=== PATIENT | male | born 1955 | race Caucasian/White ===

== ENCOUNTER 2018-09-06 16:57 | Inpatient (IN) ==
[2018-09-06 19:30] LABS: Basophils % 0.1 % (0.1-2.0); Hematocrit 52.1 % (42.0-52.0); Hemoglobin 16.3 g/dL (14.1-18.0); Lymphocytes # 0.4 K/mm3 (0.7-4.5); Lymphocytes % 1.7 % (10-50); Mean Corpuscular HGB Conc 31.2 g/dL (31.8-35.4); Mean Corpuscular Hemoglobin 29.5 pg (27.0-31.2); Mean Corpuscular Volume 94.3 fl (80-94); Mean Platelet Volume 8.5 fl (7.4-10.4); Monocytes # 0.7 K/mm3 (0.1-1.0); Neutrophils # 22.9 K/mm3 (1.8-7.8); Neutrophils % 95.2 % (37.0-80.0); Platelet Count 342 K/mm3 (142-424); Red Blood Count 5.53 M/mm3 (4.60-6.20); Red Cell Distribution Width 13.5 % (11.5-17.5); White Blood Count 24.1 K/mm3 (4.8-10.8)
--- NOTE | 2018-09-06 19:33 | History & Physical Report ---
*Admission Date: 09/06/18 *Chief complaint: Weakness/malaise/weight loss *History of present illness: 63-year-old very unfortunate white male who has been on chronic disability for most of his life because of deaf/mute status and mild intellectual disability, who has been living independently in an apartment in [place], looked after by his sisters. Unfortunately about 3 months ago he had a sudden onset of neurologic symptoms consistent with stroke disease but imaging studies revealed brain mass-transfer to where work-up eventually revealed a glioblastoma of aggressive nature. He underwent craniotomy that removed part of the tumor but overall prognosis is extremely poor. Was discharged from the [facility] in July, and yesterday began oral chemotherapy with temozolomide, which is apparently scheduled to be taken Wednesday through Wednesday for 3 weeks. His sister who brought him to my office today stated that yesterday he was very communicative with his typical sign language, was able to stand up under his own power and to do his own self-care activities. She reports that this morning, since his 1 dose of oral chemotherapy he has been lethargic, has been incontinent of urine and has been staring "like a zombie." She thinks she is lost several pounds even overnight. In my office he was found to be lethargic. Minimally responsive to conversation with his sister and was unable to stand on his own power. He has lost 40 pounds in the past 2 months. We elected to admit to hospital to check his electrolytes, imaging to see if he has had a sudden stroke or hemorrhage, and replace any electrolytes or fluids needed. [facility] History I have reviewed the patient's past medical history: Yes Medical History: Reports:: Cancer (Glioblastoma-diagnosed July 2018, status post resection, terminal prog.), Diabetes Mellitus Type 2, Hypertension Denies:: Diabetes Mellitus Type 1, MRSA *Have you ever received a pneumonia vaccine?: Yes *Have you received a flu vaccine this season?: Yes Other Medical History: Reports: Chemotherapy Other Surgeries: Yes: Appendectomy, Cancer Surgery (Craniotomy July 2018) Amputation: No Fractures: No - *Social History Educational Level: Completed High School Smoking Status: Never smoker Alcohol Intake: never *Occupational Status:: disabled Housing: apartment Household Members: none *Travel in the last 8 weeks: None - Psychiatric History Expresses thoughts of harming self/others: None Suicide Plan Description: No Plan Family Hx:: Cancer, Diabetes, Heart Attack, Hyperlipidemia, Hypertension, Kidney Disease Review of Systems - Review of Systems Review of systems:: pertinent systems reviewed and negative unless documented below - Constitutional Reports anorexia, Reports daytime sleepiness, Reports fatigue, Reports weakness, Reports weight loss - Eyes Denies blind spots, Denies blurry vision - ENT Reports abnormal hearing (Congenital deaf/mute) - *Cardiovascular Denies chest pain, Denies excessive sweating - *Respiratory Denies change in phlegm color, Denies chest congestion - *Gastrointestinal Denies abdominal pain, Denies belching - *Genitourinary Reports urinary incontinence - *Musculoskeletal Reports abnormal walking, Reports decreased muscle mass, Reports limited joint movement, Reports loss of height, Reports muscle weakness - *Neurologic Reports abnormal walking, Reports abnormal movements, Reports behavioral changes, Reports unsteadiness, Reports dizziness, Reports localized weakness, Reports frequent falls, Reports lack of coordination Meds Home Medications Medication Instructions Recorded Confirmed Type Amlodipine Besylate 10 mg PO DAILY 07/29/18 09/06/18 History Atorvastatin Calcium [Atorvastatin 20 mg PO DAILY 07/29/18 09/06/18 History 20mg Tab] Fluoxetine HCl [Prozac 20mg 20 mg PO DAILY 07/29/18 09/06/18 History Capsule] Lisinopril [Lisinopril 5mg Tablet] 5 mg PO DAILY 07/29/18 09/06/18 History Metoprolol Tartrate 100 mg PO BID 07/29/18 09/06/18 History Sitagliptin Phosphate [Januvia 100 mg PO DAILY 07/29/18 09/06/18 History 100mg tablet] Dronabinol 5 mg PO BID 09/06/18 09/06/18 History Metformin HCl [Fortamet] 1,000 mg PO BID 09/06/18 09/06/18 History Ondansetron [Zofran 4mg ODT] 4 mg PO Q6HP PRN 09/06/18 09/06/18 History Temozolomide 250 mg PO HS 09/06/18 09/06/18 History levETIRAcetam [Levetiracetam] 750 mg PO BID 09/06/18 09/06/18 History Allergies Allergy/AdvReac Type Severity Reaction Status Date / Time Penicillins Allergy Verified 09/06/18 18:50 Exam Vital signs and Labs for Last 24 Hours: Temp Pulse Resp BP Pulse Ox 98.0 F 87 18 125/76 95 09/06/18 15:45 09/06/18 15:45 09/06/18 15:45 09/06/18 15:45 09/06/18 15:45 I & O for Last 24 hours: Intake & Output 09/04/18 09/05/18 09/06/18 09/07/18 11:59 11:59 11:59 11:59 Weight 133 lb 2 oz Narrative: Patient appears significantly ill, sallow complexion, weight loss is signifi cant. Oropharynx dry. Flat neck veins. Poor skin turgor with tenting. Lungs have poor air movement because of his muscle weakness. Heart rate regular. Abdomen is soft, scaphoid. Extremities are wasted, muscle atrophy noted. Able to move his extremities but very weak with 3/5 muscle strength in all 4 extremities. Drooping right face, bruise above the right orbit from a fall at home. Craniotomy scar noted. Assessment and Plan (1) Glioblastoma Current visit: Yes Status: Acute Category: Medical Code(s): C71.9 - Malignant neoplasm of brain, unspecified Continue oral chemotherapy-I think his symptoms are more disease progression but we will check labs and give IV fluids as noted below (2) Weight loss of more than 10% body weight Current visit: Yes Status: Acute Category: Medical Code(s): R63.4 - Abnormal weight loss Significant disease progression. Patient maintains DNR status. I discussed hospice care with his sisters. They are in agreement that he will need long- term care after this hospitalization. (3) Orthostatic hypotension Current visit: Yes Status: Acute Category: Medical Code(s): I95.1 - Orthostatic hypotension Labs, cautious IV fluids.
[2018-09-06 19:36] LABS: Albumin Level 2.5 gm/dL (3.4-5.0); Albumin/Globulin Ratio 0.8 (1.1-1.8); Anion Gap 20.8 mEq/L (5-15); Bilirubin,Total 0.6 mg/dL (0.2-1.0); Calcium 9.1 mg/dL (8.5-10.1); Potassium 5.8 mmoL/L (3.5-5.1); Total Protein,Serum 5.5 gm/dL (6.4-8.2)
[2018-09-06 20:32] LABS: Lymphocytes % 3 % (10-50); Monocytes % 1 % (2-9); Neutrophils % 96 % (42-76); Total Cells Counted 100
[2018-09-06 20:33] LABS: RBC Morphology Normal
[2018-09-07 06:10] LABS: Basophils % 0.1 % (0.1-2.0); Eosinophils # 0.1 K/mm3 (0.0-0.4); Eosinophils % 0.5 % (0.1-12.0); Hematocrit 43.4 % (42.0-52.0); Lymphocytes # 0.8 K/mm3 (0.7-4.5); Lymphocytes % 5.1 % (10-50); Mean Corpuscular HGB Conc 32.7 g/dL (31.8-35.4); Mean Corpuscular Hemoglobin 29.2 pg (27.0-31.2); Mean Corpuscular Volume 89.2 fl (80-94); Mean Platelet Volume 7.1 fl (7.4-10.4); Monocytes # 0.8 K/mm3 (0.1-1.0); Neutrophils % 89.3 % (37.0-80.0); Platelet Count 267 K/mm3 (142-424); Red Blood Count 4.86 M/mm3 (4.60-6.20); Red Cell Distribution Width 13.9 % (11.5-17.5); White Blood Count 15.7 K/mm3 (4.8-10.8)
[2018-09-07 06:16] LABS: Anion Gap 9.2 mEq/L (5-15); Blood Urea Nitrogen 53 mg/dL (7-18); Calcium 8.4 mg/dL (8.5-10.1); Carbon Dioxide 28 mmol/L (21.0-32.0); Chloride 114 mmol/L (98-107); Glucose 128 mg/dL (74-106); Potassium 4.2 mmoL/L (3.5-5.1); Sodium 147 mmol/L (136-145)
[2018-09-07 06:17] LABS: Hemoglobin 14.3 g/dL (14.1-18.0)
[2018-09-07 06:51] LABS: Acetone, Serum (Rapid) None Detected (None Detect)
--- NOTE | 2018-09-07 07:41 | Pharmacy Consult Notes ---
[facility] Pharmacy VTE Monitoring - Patient Demographics Admission date: 09/06/18 Report Date: 09/07/18 Time: 07:41 Allergies/Adverse Reactions: Patient Allergies Penicillins Allergy (Verified 09/06/18 18:50) Height: 1.83 m Weight: 61.263 kg Patient Problems: Current Active Problems Glioblastoma (Acute) Weight loss of more than 10% body weight (Acute) Orthostatic hypotension (Acute) - VTE Risk Labs: VTE Related Lab Results Hgb 14.3 g/dL (14.1-18.0) D 09/07/18 05:46 Hct 43.4 % (42.0-52.0) 09/07/18 05:46 Plt Count 267 K/mm3 (142-424) 09/07/18 05:46 BUN 53 mg/dL (7-18) H D 09/07/18 05:46 Creatinine 1.05 mg/dL (0.70-1.30) D 09/07/18 05:46 Estimated Creat Clear 64 mL/min (50-200) 09/07/18 05:46 Was VTE Risk Assessment Performed: Yes VTE Score: 3 VTE Risk Level: Low Risk - Prophylaxis VTE Prophylaxis Ordered?: Yes Types of VTE Prophylaxis: TEDS Knee High Location of Applied Device: Bilateral Lower Extremeties - VTE Diagnosis Confirmed Treatment or plan recommended: Continue Current Treatment
[2018-09-07 07:45] LABS: Lymphocytes % 2 % (10-50); Monocytes % 3 % (2-9); Neutrophils % 93 % (42-76); Total Cells Counted 100
[2018-09-07 07:46] LABS: RBC Morphology Normal
--- NOTE | 2018-09-07 08:19 | Progress Note ---
Internal Medicine - PN: Subj *Date: 09/07/18 *Time: 08:16 Interval history: Overall patient looks much better. Much more active. Labs reviewed showing impressive hyperglycemia resolved after intravenous insulin and fluids. Eating some breakfast. Still remains weak according to his sister. Exam Vital signs and Labs for Last 24 Hours: Temp Pulse Resp BP Pulse Ox 97.5 F L 70 16 157/85 H 97 09/07/18 07:47 09/07/18 07:47 09/07/18 07:47 09/07/18 07:47 09/07/18 07:47 Laboratory Results - last 24 hr 09/06/18 18:15: WBC 24.1 H*, RBC 5.53, Hgb 16.3, Hct 52.1 H, MCV 94.3 H, MCH 29.5, MCHC 31.2 L, RDW 13.5, Plt Count 342, MPV 8.5, Neut % (Auto) 95.2 H, Lymph % (Auto) 1.7 L, [place] % (Auto) 3.0, Eos % (Auto) 0.0 L, Baso % (Auto) 0.1, Neut # (Auto) 22.9 H, Lymph # (Auto) 0.4 L, [place] # (Auto) 0.7, Eos # (Auto) 0.0, Baso # (Auto) 0.0, Total Counted 100, Neutrophils % (Manual) 96 H, Lymphocytes % (Manual) 3 L, Monocytes % (Manual) 1 L, Platelet Estimate Normal, RBC Morphology Normal 09/06/18 18:15: Sodium 134 L, Potassium 5.8 H, Chloride 100, Carbon Dioxide 19 L , Anion Gap 20.8 H, BUN 73 H, Creatinine 1.49 H, Estimated Creat Clear 44, Estimated GFR 48 L, Est GFR ( Amer) 58 L, Glucose 805 H*, Calcium 9.1, Magnesium 2.6 H, Total Bilirubin 0.6, AST 20, ALT 80 H, Alkaline Phosphatase 151 H, Total Protein 5.5 L, Albumin 2.5 L, Globulin 3.0, Albumin/Globulin Ratio 0.8 L 09/06/18 18:15: Acetone Level Small 09/06/18 22:00: Random Glucose 484 H 09/07/18 05:46: WBC 15.7 H D, RBC 4.86, Hgb 14.3 D, Hct 43.4, MCV 89.2, MCH 29.2, MCHC 32.7, RDW 13.9, Plt Count 267, MPV 7.1 L, Neut % (Auto) 89.3 H, Lymph % (Auto) 5.1 L, [place] % (Auto) 5.0, Eos % (Auto) 0.5, Baso % (Auto) 0.1, Neut # (Auto) 14.0 H, Lymph # (Auto) 0.8, [place] # (Auto) 0.8, Eos # (Auto) 0.1, Baso # (Auto) 0.0, Total Counted 100, Neutrophils % (Manual) 93 H, Lymphocytes % (Manual) 2 L, Atypical Lymphs % 2.0, Monocytes % (Manual) 3, Platelet Estimate Normal, RBC Morphology Normal 09/07/18 05:46: Sodium 147 H, Potassium 4.2 D, Chloride 114 H, Carbon Dioxide 28 D, Anion Gap 9.2, BUN 53 H D, Creatinine 1.05 D, Estimated Creat Clear 64, Estimated GFR 72, Est GFR ( Amer) 87 D, Glucose 128 H D, Calcium 8.4 L, Acetone Level None detected 09/07/18 05:46: POC Glucose 120 H I & O for Last 24 hours: Intake & Output 09/04/18 09/05/18 09/06/18 09/07/18 11:59 11:59 11:59 11:59 Intake Total 2857 / 2857 Output Total 200 / 200 Balance 2657 / 2657 Weight 135 lb 1 oz Narrative: Patient is much more active, better hydrated. Heart rate regular. Abdomen soft, lungs have some rhonchi. No edema or clubbing. No focal neurologic deficits except for his deafness. Assessment and Plan (1) Glioblastoma Current visit: Yes Status: Acute Category: Medical Code(s): C71.9 - Malignant neoplasm of brain, unspecified Continue oral chemotherapy and palliative care. Patient is a good candidate for skilled care facility. (2) Weight loss of more than 10% body weight Current visit: Yes Status: Acute Category: Medical Code(s): R63.4 - Abnormal weight loss PT/OT evaluation for gait/safety evaluation. (3) Orthostatic hypotension Current visit: Yes Status: Acute Category: Medical Code(s): I95.1 - Orthostatic hypotension (4) Hyperosmolar hyperglycemic coma due to diabetes mellitus without ketoacidosis Current visit: Yes Status: Acute Category: Medical Code(s): E11.01 - Type 2 diabetes mellitus with hyperosmolarity with coma Nice improvement with IV insulin and IV fluids. Follow closely. (5) Diabetes type 2, uncontrolled Current visit: Yes Status: Acute Category: Medical Code(s): E11.65 - Type 2 diabetes mellitus with hyperglycemia Continue sliding scale insulin. (6) Community acquired pneumonia Current visit: Yes Status: Acute Category: Medical Code(s): J18.9 - Pneumonia, unspecified organism Infiltrate on portable chest x-ray. Recheck nonportable chest x-ray today. Start IV antibiotics.
[2018-09-07 15:21] LABS: Microscopic, Urine URINE MICROSCOPIC (MICROSCOPIC)
[2018-09-07 15:51] LABS: Appearance,Urine CLEAR (Clear); Bilirubin,Urine Negative (Negative); Blood, Urine Negative (Negative); Color,Urine YELLOW (Yellow); Glucose,Urine (UA) 3+ (Negative); Ketones,Urine 1+ (Negative); Leukocyte Esterase,Urine Negative (Negative); Protein,Urine Negative (Negative); Urobilinogen,Urine 0.2 EU/dl (0.2)
[2018-09-07 16:10] LABS: Bacteria,Urine Trace /lpf; Squamous Epithelial Cell,Urine Occasional #/hpf (0-5)
[2018-09-08 06:49] LABS: Basophils % 0.1 % (0.1-2.0); Eosinophils # 0.1 K/mm3 (0.0-0.4); Eosinophils % 0.6 % (0.1-12.0); Hematocrit 40.7 % (42.0-52.0); Hemoglobin 13.5 g/dL (14.1-18.0); Lymphocytes # 1.2 K/mm3 (0.7-4.5); Lymphocytes % 9.3 % (10-50); Mean Corpuscular HGB Conc 33.2 g/dL (31.8-35.4); Mean Corpuscular Hemoglobin 29.2 pg (27.0-31.2); Mean Corpuscular Volume 87.8 fl (80-94); Mean Platelet Volume 8.4 fl (7.4-10.4); Monocytes # 0.8 K/mm3 (0.1-1.0); Neutrophils % 84.1 % (37.0-80.0); Platelet Count 204 K/mm3 (142-424); Red Blood Count 4.63 M/mm3 (4.60-6.20); Red Cell Distribution Width 13.8 % (11.5-17.5)
[2018-09-08 07:22] LABS: Anion Gap 12.3 mEq/L (5-15); Calcium 7.7 mg/dL (8.5-10.1)
[2018-09-08 07:28] LABS: Potassium 4.3 mmoL/L (3.5-5.1)
--- NOTE | 2018-09-08 10:02 | Progress Note ---
Internal Medicine - PN: Subj *Date: 09/08/18 *Time: 08:15 Interval history: Patient is resting in bed, appetite is good. Gives thumbs up and smiles when asked how is he doing. He has no complaints. Exam Vital signs and Labs for Last 24 Hours: Temp Pulse Resp BP Pulse Ox 98.3 F 78 18 138/82 97 09/08/18 07:50 09/08/18 07:50 09/08/18 07:50 09/08/18 07:50 09/08/18 07:50 Laboratory Results - last 24 hr 09/06/18 22:40: Urine Color Yellow, Urine Appearance Clear, Urine pH 5.0, Ur Specific [place] 1.010, Urine Protein Negative, Urine Glucose (UA) 3+, Urine Ketones 1+, Urine Blood Negative, Urine Nitrate Negative, Urine Bilirubin Negative, Urine Urobilinogen 0.2, Ur Leukocyte Esterase Negative, Urine RBC None, Urine WBC 3-5, Ur Squamous Epith Cells Occasional, Urine Bacteria Trace 09/07/18 11:43: POC Glucose 213 H 09/07/18 16:29: POC Glucose 134 H 09/07/18 20:31: POC Glucose 214 H 09/08/18 05:17: POC Glucose 263 H 09/08/18 05:42: WBC 13.0 H, RBC 4.63, Hgb 13.5 L, Hct 40.7 L, MCV 87.8, MCH 29.2, MCHC 33.2, RDW 13.8, Plt Count 204, MPV 8.4, Neut % (Auto) 84.1 H, Lymph % (Auto) 9.3 L, [place] % (Auto) 6.0, Eos % (Auto) 0.6, Baso % (Auto) 0.1, Neut # (Auto) 11.0 H, Lymph # (Auto) 1.2, [place] # (Auto) 0.8, Eos # (Auto) 0.1, Baso # (Auto) 0.0 09/08/18 05:42: Sodium 137, Potassium 4.3, Chloride 106, Carbon Dioxide 23, Anion Gap 12.3, BUN 19 H D, Creatinine 0.34 L D, Estimated Creat Clear 71, Estimated GFR 264, Est GFR ( Amer) 319 D, Glucose 98 D, Calcium 7.7 L I & O for Last 24 hours: Intake & Output 09/05/18 09/06/18 09/07/18 09/08/18 11:59 11:59 11:59 11:59 Intake Total 2857 / 2857 4387 / 4387 Output Total 200 / 200 Balance 2657 / 2657 4387 / 4387 Weight 135 lb 1 oz 143 lb 1 oz Narrative: Alert and oriented at baseline, Deaf/mute, communicates by reading lips and using hand gestures/communication board. Rate and rhythm regular. No LE edema. Lung sounds clear anteriorly. Abd soft and nontender Assessment and Plan (1) Glioblastoma Current visit: Yes Status: Acute Category: Medical Code(s): C71.9 - Malignant neoplasm of brain, unspecified (2) Weight loss of more than 10% body weight Current visit: Yes Status: Acute Category: Medical Code(s): R63.4 - Abnormal weight loss (3) Orthostatic hypotension Current visit: Yes Status: Acute Category: Medical Code(s): I95.1 - Orthostatic hypotension (4) Hyperosmolar hyperglycemic coma due to diabetes mellitus without keto acidosis Current visit: Yes Status: Acute Category: Medical Code(s): E11.01 - Type 2 diabetes mellitus with hyperosmolarity with coma (5) Diabetes type 2, uncontrolled Current visit: Yes Status: Acute Category: Medical Code(s): E11.65 - Type 2 diabetes mellitus with hyperglycemia (6) Community acquired pneumonia Current visit: Yes Status: Acute Category: Medical Code(s): J18.9 - Pneumonia, unspecified organism (7) Severe protein-calorie malnutrition Current visit: Yes Status: Acute Category: Medical Code(s): E43 - Unspe cified severe protein-calorie malnutrition - Assessment and plan all Dx Assessment and Plan for all problems:: Overall, he is improving. WBC down to 13. Repeat CXR showed no infiltrates. He appears comfortable. On track for d/c to [facility] on Wednesday. LTC facility will need draft of d/c summary tomorrow to obtain medications as pharmacy does not delivery on the weekend. Restart Metformin today and add Januvia for glucose control which will need to be continued after d/c.
--- NOTE | 2018-09-08 17:31 | Discharge Summary ---
General - General Admission date:: 09/07/18 Discharge date: 09/10/18 HPI HPI: 63-year-old very unfortunate white male who has been on chronic disability for most of his life because of deaf/mute status and mild intellectual disability, who has been living independently in an apartment in [place], looked after by his sisters. Unfortunately about 3 months ago he had a sudden onset of neurologic symptoms consistent with stroke disease but imaging studies revealed brain mass-transfer to where work-up eventually revealed a glioblastoma of aggressive nature. He underwent craniotomy that removed part of the tumor but overall prognosis is extremely poor. Was discharged from the [facility] in July, and yesterday began oral chemotherapy with temozolomide, which is apparently scheduled to be taken Wednesday through Wednesday for 3 weeks. His sister who brought him to my office today stated that yesterday he was very communicative with his typical sign language, was able to stand up under his own power and to do his own self-care activities. She reports that this morning, since his 1 dose of oral chemotherapy he has been lethargic, has been incontinent of urine and has been staring "like a zombie." She thinks she is lost several pounds even overnight. In my office he was found to be lethargic. Minimally responsive to conversation with his sister and was unable to stand on his own power. He has lost 40 pounds in the past 2 months. We elected to admit to hospital to check his electrolytes, imaging to see if he has had a sudden stroke or hemorrhage, and replace any electrolytes or fluids needed. Hospital Course Hospital Course: Mr. Medina is an unfortunate man with terminal glioblastoma, status post debulking, who presented with lethargy and hyperglycemia. Admitted for concern of stroke with workup and imaging negative. Found to have significantly elevated hyperglycemia that was corrected using insulin. Patient's disposition and lethargy improved with normalization of blood sugar. Due to patient's debility, weight loss, difficulty caring for himself, placement was initiated for short-term nursing at time of discharge. Patient has remained medically stable with normal vitals, improved blood sugar control, tolerating p.o. intake. Remains stable for discharge to nursing facility with continuation of steroids for swelling associated with glioblastoma. Tolerating dual oral anti- hypoglycemia meds. Will evaluate in the coming days for possible initiation of further insulin regimen. Patient has no complaints today. Of note communicates best with communication board and sign language. Objective Vital signs: Temp Pulse Resp BP Pulse Ox 98.2 F 66 16 140/81 95 09/08/18 15:51 09/08/18 15:51 09/08/18 15:51 09/08/18 15:51 09/08/18 15:51 Narrative: Alert and oriented at baseline, Deaf/mute, communicates by reading lips and using hand gestures/communication board. Rate and rhythm regular. No LE edema. Lung sounds clear anteriorly. Abd soft and nontender Results Labs on day of discharge: Labs from last 24 hours 09/08/18 09/08/18 09/08/18 16:26 11:42 05:42 WBC RBC Hgb Hct MCV MCH MCHC RDW Plt Count MPV Neut % (Auto) Lymph % (Auto) [place] % (Auto) Eos % (Auto) Baso % (Auto) Neut # (Auto) Lymph # (Auto) [place] # (Auto) Eos # (Auto) Baso # (Auto) Sodium Potassium Chloride Carbon Dioxide Anion Gap BUN Creatinine Estimated Creat Clear Estimated GFR Est GFR ( Amer) Glucose POC Glucose 165 H 99 Calcium Acetone Level None detected 09/08/18 09/08/18 09/08/18 05:42 05:42 05:17 WBC 13.0 H RBC 4.63 Hgb 13.5 L Hct 40.7 L MCV 87.8 MCH 29.2 MCHC 33.2 RDW 13.8 Plt Count 204 MPV 8.4 Neut % (Auto) 84.1 H Lymph % (Auto) 9.3 L [place] % (Auto) 6.0 Eos % (Auto) 0.6 Baso % (Auto) 0.1 Neut # (Auto) 11.0 H Lymph # (Auto) 1.2 [place] # (Auto) 0.8 Eos # (Auto) 0.1 Baso # (Auto) 0.0 Sodium 137 Potassium 4.3 Chloride 106 Carbon Dioxide 23 Anion Gap 12.3 BUN 19 H D Creatinine 0.34 L D Estimated Creat Clear 71 Estimated GFR 264 Est GFR ( Amer) 319 D Glucose 98 D POC Glucose 263 H Calcium 7.7 L Acetone Level 09/07/18 20:31 WBC RBC Hgb Hct MCV MCH MCHC RDW Plt Count MPV Neut % (Auto) Lymph % (Auto) [place] % (Auto) Eos % (Auto) Baso % (Auto) Neut # (Auto) Lymph # (Auto) [place] # (Auto) Eos # (Auto) Baso # (Auto) Sodium Potassium Chloride Carbon Dioxide Anion Gap BUN Creatinine Estimated Creat Clear Estimated GFR Est GFR ( Amer) Glucose POC Glucose 214 H Calcium Acetone Level DS: Diagnosis - Discharge Diagnosis (1) Glioblastoma Status: Acute (2) Weight loss of more than 10% body weight Status: Acute (3) Orthostatic hypotension Status: Acute (4) Hyperosmolar hyperglycemic coma due to diabetes mellitus without ketoacidosis Status: Acute (5) Diabetes type 2, uncontrolled Status: Acute (6) Community acquired pneumonia Status: Acute (7) Severe protein-calorie malnutrition Status: Acute Discharge Plan - Patient Discharge Instructions ACTIVITY: Ambulate as tolerated DIET: continue same diet Patient Instructions: Glioblastoma Multiforme, Deafness, DI for Orthostatic Hypotension, DI for Dehydration -- Adult, DI for Pneumonia -- Adult, How to Prevent Falls, DI for Hyperglycemia -- Adult, DI for Muscle Weakness - Follow up Plan Disposition: [facility] Home Medications: Home Medications Medication Instructions Recorded Confirmed Type Amlodipine Besylate 10 mg PO DAILY 07/29/18 09/06/18 History Atorvastatin Calcium [Atorvastatin 20 mg PO HS 07/29/18 09/07/18 History 20mg Tab] Fluoxetine HCl [Prozac 20mg 20 mg PO DAILY 07/29/18 09/06/18 History Capsule] Lisinopril [Lisinopril 5mg Tablet] 5 mg PO DAILY 07/29/18 09/06/18 History Metoprolol Tartrate 100 mg PO BID 07/29/18 09/06/18 History Sitagliptin Phosphate [Januvia 100 mg PO DAILY 07/29/18 09/06/18 History 100mg tablet] Dronabinol 5 mg PO BID 09/06/18 09/06/18 History Metformin HCl [Fortamet] 1,000 mg PO BID 09/06/18 09/06/18 History Ondansetron [Zofran 4mg ODT] 4 mg PO Q6HP PRN 09/06/18 09/06/18 History Temozolomide 250 mg PO HS 09/06/18 09/06/18 History levETIRAcetam [Levetiracetam] 750 mg PO BID 09/06/18 09/06/18 History Dexamethasone [Decadron 4mg tablet] 4 mg PO BID 09/07/18 09/07/18 History Prescriptions/Medication Reconciliation: Continue Metoprolol Tartrate 100 mg PO BID Lisinopril [Lisinopril 5mg Tablet] 5 mg PO DAILY Fluoxetine HCl [Prozac 20mg Capsule] 20 mg PO DAILY Atorvastatin Calcium [Atorvastatin 20mg Tab] 20 mg PO HS Amlodipine Besylate 10 mg PO DAILY Temozolomide 250 mg PO HS Ondansetron [Zofran 4mg ODT] 4 mg PO Q6HP PRN PRN Reason: Nausea Metformin HCl [Fortamet] 1,000 mg PO BID Dronabinol 5 mg PO BID Dexamethasone [Decadron 4mg tablet] 4 mg PO BID Sitagliptin Phosphate [Januvia 100mg tablet] 100 mg PO DAILY levETIRAcetam [Levetiracetam] 750 mg PO BID
--- NOTE | 2018-09-09 14:01 | Progress Note ---
Internal Medicine - PN: Subj *Date: 09/09/18 *Time: 08:30 Interval history: Bandage clean dry and intact, bowel sounds present patient remained hemodynamically stable overnight without fever. Cooperative mood this morning. Communicating via white board. no complaints today. No shortness of breath, oxygen requirement, nausea vomiting, diarrhea. Exam Vital signs and Labs for Last 24 Hours: Temp Pulse Resp BP Pulse Ox 97.5 F L 68 16 114/70 99 09/09/18 08:00 09/09/18 08:00 09/09/18 08:00 09/09/18 08:00 09/09/18 08:23 Laboratory Results - last 24 hr 09/08/18 16:26: POC Glucose 165 H 09/08/18 21:33: POC Glucose 258 H 09/09/18 06:57: POC Glucose 116 H 09/09/18 11:17: POC Glucose 118 H I & O for Last 24 hours: Intake & Output 09/06/18 09/07/18 09/08/18 09/09/18 23:59 23:59 23:59 23:59 Intake Total 3577 / 3577 5756 / 5756 1694 / 1694 Output Total 200 / 200 Balance -200 / -200 3577 / 3577 5756 / 5756 1694 / 1694 Weight 60.384 kg 61.263 kg 67.132 kg 66.905 kg Narrative: Alert and oriented at baseline, Deaf/mute, communicates by reading lips and using hand gestures/communication board. Rate and rhythm regular. No LE edema. Lung sounds clear anteriorly. Abd soft and nontender Assessment and Plan (1) Glioblastoma Current visit: Yes Status: Acute Category: Medical Code(s): C71.9 - Malignant neoplasm of brain, unspecified (2) Weight loss of more than 10% body weight Current visit: Yes Status: Acute Category: Medical Code(s): R63.4 - Abnormal weight loss (3) Orthostatic hypotension Current visit: Yes Status: Acute Category: Medical Code(s): I95.1 - Orthostatic hypotension (4) Hyperosmolar hyperglycemic coma due to diabetes mellitus without ketoacidosis Current visit: Yes Status: Acute Category: Medical Code(s): E11.01 - Type 2 diabetes mellitus with hyperosmolarity with coma (5) Diabetes type 2, uncontrolled Current visit: Yes Status: Acute Category: Medical Code(s): E11.65 - Type 2 diabetes mellitus with hyperglycemia (6) Community acquired pneumonia Current visit: Yes Status: Acute Category: Medical Code(s): J18.9 - Pneumonia, unspecified organism (7) Severe protein-calorie malnutrition Current visit: Yes Status: Acute Category: Medical Code(s): E43 - Unspecified severe protein-calorie malnutrition - Assessment and plan all Dx Assessment and Plan for all problems:: Blood sugar remains stable. No acute changes. Continuing to await placement. Medically stable for discharge at time of acceptance by nursing facility.
--- NOTE | 2018-09-10 08:52 | Progress Note ---
Internal Medicine - PN: Subj *Date: 09/10/18 *Time: 08:52 Exam Vital signs and Labs for Last 24 Hours: Temp Pulse Resp BP Pulse Ox 97.4 F L 63 18 124/75 99 09/10/18 08:00 09/10/18 08:00 09/10/18 08:00 09/10/18 08:00 09/10/18 08:00 Laboratory Results - last 24 hr 09/09/18 11:17: POC Glucose 118 H 09/09/18 16:07: POC Glucose 201 H 09/09/18 20:52: POC Glucose 184 H 09/10/18 06:38: POC Glucose 83 I & O for Last 24 hours: Intake & Output 09/07/18 09/08/18 09/09/18 09/10/18 23:59 23:59 23:59 23:59 Intake Total 3577 / 3577 5756 / 5756 2414 / 2414 4172 / 4172 Output Total 200 / 200 Balance 3577 / 3577 5756 / 5756 2214 / 2214 4172 / 4172 Weight 61.263 kg 67.132 kg 66.905 kg 66.281 kg Assessment and Plan (1) Glioblastoma Current visit: Yes Status: Acute Category: Medical Code(s): C71.9 - Malignant neoplasm of brain, unspecified (2) Weight loss of more than 10% body weight Current visit: Yes Status: Acute Category: Medical Code(s): R63.4 - Abnormal weight loss (3) Orthostatic hypotension Current visit: Yes Status: Acute Category: Medical Code(s): I95.1 - Orthostatic hypotension (4) Hyperosmolar hyperglycemic coma due to diabetes mellitus without ket oacidosis Current visit: Yes Status: Acute Category: Medical Code(s): E11.01 - Type 2 diabetes mellitus with hyperosmolarity with coma (5) Diabetes type 2, uncontrolled Current visit: Yes Status: Acute Category: Medical Code(s): E11.65 - Type 2 diabetes mellitus with hyperglycemia (6) Community acquired pneumonia Current visit: Yes Status: Acute Category: Medical Code(s): J18.9 - Pneumonia, unspecified organism (7) Severe protein-calorie malnutrition Current visit: Yes Status: Acute Category: Medical Code(s): E43 - Unsp ecified severe protein-calorie malnutrition The patient's infection will respond to the chosen ABx?: Yes Is the patient receiving the right drug, dose, and route?: Yes Could a more targeted ABx be ordered?: No (WBC IMPROVED)
== END 2018-09-10 10:00 | DRG 637 ==
LOC: 2ND
PROVIDERS: ADMIT Internal Medicine Adolescent Medicine; ATTEND Internal Medicine Adolescent Medicine
DX: E86.0 Dehydration; J18.9 Pneumonia, unspecified organism; Z79.899 Other long term (current) drug therapy; Z88.0 Allergy status to penicillin; Z79.84 Long term (current) use of oral hypoglycemic drugs; F70 Mild intellectual disabilities; E11.01 Type 2 diabetes mellitus with hyperosmolarity with coma; E43 Unspecified severe protein-calorie malnutrition; Z68.1 Body mass index [BMI] 19.9 or less, adult; H91.3 Deaf nonspeaking, not elsewhere classified; E11.65 Type 2 diabetes mellitus with hyperglycemia; I95.1 Orthostatic hypotension; C71.1 Malignant neoplasm of frontal lobe
CPT/HCPCS: 36415; 70450; 71010; 71020; 71045; 71046; 72072; 80048; 80053; 81001; 82009; 82947; 82962; 83735; 85007; 85025; 93005; 94761; 97116; 97163; 97165; 97530; 97535; G0378; J0456